=== PATIENT | male | born 1935 | race Caucasian/White ===

== ENCOUNTER 2016-03-15 14:36 | Observation (INO) | payer MEDICARE ==
[2016-03-15] MEDS ORDERED: Lactated Ringers 1,000 ML IV ONE (15:51)
[2016-03-15] MEDS ORDERED: Zofran 4 MG/2 ML VIAL IV PRN (15:51)
[2016-03-15] MEDS ORDERED: Lactated Ringers 1,000 ML IV SCH (16:00)
--- NOTE | 2016-03-15 16:36 | XRAY ---
Indication: Altered mental status. Comparison: None Portable chest demonstrates mild bibasilar infiltrates versus atelectasis without consolidation or large effusion. Heart is not enlarged. Bony thorax intact with mild degenerative changes. Impression: Bibasilar infiltrates/atelectasis. Correlate clinically.
[2016-03-15 16:41] LABS: Mean Cell Volume 91.8 fl (78-100); Mean Corpuscular Hemoglobin 29.7 pg (26-32); Platelet Count 56 K/mm3 (150-450); Red Blood Count 5.25 M/mm3 (4.1-5.6); Red Cell Distribution Width 20.4 % (11.5-14.0)
[2016-03-15] MEDS ORDERED: Zithromax 500 MG/ 250 ML NaCl Premix 250 ML IV SCH (17:07)
[2016-03-15] MEDS ORDERED: ROCEPHIN 1 Gm-D5w 50 ml Bag** 50 ML IV SCH (17:15)
[2016-03-15 17:19] LABS: BAND 1 % (0.0-2.0); Eosinophil 2 % (0.00-3.0); Total Cells Counted 100
[2016-03-15 17:21] LABS: ANISOCYTOSIS 1+; Platelet Estimate DECREASED (NORMAL); Polychromasia 1+
[2016-03-15 17:45] LABS: ALBUMIN 3.2 g/dL (3.4-5.0); ANION GAP 32.2 MEQ/L (5-15); BILIRUBIN,TOTAL 1.6 mg/dL (0.2-1.0); Total Protein 6.7 gm/dL (6.4-8.2)
[2016-03-15 17:49] VITALS: O2SAT 93
[2016-03-15 17:50] LABS: Potassium 7.6 mEq/L (3.5-5.1)
[2016-03-15 17:51] LABS: Carbon Dioxide 11.8 mEq/L (21-32)
[2016-03-15] MEDS ORDERED: Sodium Chloride 0.9% 1000 ML 1,000 ML IV STA (18:05)
[2016-03-15] MEDS ORDERED: NovoLIN R IV ONE (18:07)
[2016-03-15] MEDS ORDERED: D50W 50ML Vial IV ONE (18:08)
[2016-03-15] MEDS ORDERED: NovoLOG Insulin SQ PRN (18:08)
[2016-03-15] MEDS ORDERED: Kayexylate 15 GM/60 ML PO ONE (18:11)
[2016-03-15] MEDS ORDERED: Sodium Chloride 0.9% 1000 ML 1,000 ML IV SCH (18:15)
--- NOTE | 2016-03-15 18:24 | PCM.HP ---
History of Present Illness - Chief Complaint Chief Complaint: altered mental status Date: 03/15/16 History of Present Illness: is a 80 year old male. History is provided by the . who has been having increased weakness not eating or drinking much for the last 4 days and decreased urine output and not really any urine output starting yesterday. He was more confused yesterday and worse today. His brought him into his regular [facility] [employer] [facility] who had me look at him in clinic and we sent him to the tele floor for observation labs and hydration. He remains confused now and weak but otherwise denies complaints. He had TURP done in 08/[address] Plaza and has been self cathing since then. He has been getting some blood out and thick urine yesterday. - Review of Systems Constitutional: Fatigue, Lethargy, Malaise, No Fever, No Chills Eyes: No Symptoms Ears, Nose, & Throat: No Symptoms Respiratory: No Cough, No Short Of Breath Cardiac: No Chest Pain, No Edema, No Syncope Abdominal/Gastrointestinal: Nausea, No Abdominal Pain Genitourinary Symptoms: Hematuria Skin: No Rash Neurological: Focal Weakness, Gait Changes Psychological: No Symptoms Endocrine: No Symptoms Hematologic/Lymphatic: No Symptoms Immunological/Allergic: No Symptoms Medications & Allergies Home Medications: Home Medication List Acyclovir [Zovirax] 400 mg PO BID 07/18/15 [History Confirmed 03/15/16] Aspirin [Aspirin EC] 81 mg PO DAILY 07/18/15 [History Confirmed 03/15/16] Atenolol [Tenormin] 100 mg PO DAILY 07/18/15 [History Confirmed 03/15/16] Gabapentin [Neurontin] 300 mg PO TID 07/18/15 [History Confirmed 03/15/16] Glyburide 2.5 mg PO BID 07/18/15 [History Confirmed 03/15/16] Lisinopril 5 mg [Zestril 5 MG] 5 mg PO DAILY 07/18/15 [History Confirmed 03/15/16] Metformin HCl 1000 mg [Glucophage 1000 MG] 1,000 mg PO BID 07/18/15 [History Confirmed 03/15/16] Prednisolone Acetate OPHTH [Pred-Forte 1% Ophthalmic] 1 drop OP DAILY 06/ 10/16 [History Confirmed 03/15/16] Simvastatin 40 mg [Zocor 40 mg] 20 mg PO DAILY 07/18/15 [History Confirmed 03/15] Allergies/Adverse Reactions: Allergies Allergy/AdvReac Type Severity Reaction Status Date / Time celecoxib [From Celebrex] AdvReac Verified 03/15/16 15:12 - Past Medical History Past Medical History: Yes Neurological History: No Pertinent History ENT History: Other Cardiac History: High Cholesterol, Hypertension Respiratory History: No Pertinent History Endocrine Medical History: Diabetes Type II Musculoskelatal History: Arthritis GI Medical History: Hernia History: Other Pyscho-Social History: No Pertinent History Male Reproductive Disorders: Prostate Problems Comment: herpies infection of the right eye. pt self caths following prostate surgery 2016 - Past Surgical History Past Surgical History: Yes Neuro Surgical History: No Pertinent History Cardiac History: No Pertinent History Respiratory Surgery: No Pertinent History GI Surgical History: Hernia Repair Genitourinary Surgical Hx: No Pertinent History Musculskeletal Surgical Hx: No Pertinent History Male Surgical History: Prostate Surgery Other Surgical History: hernia repair times 3 - Social History Smoking Status: Former smoker How long have you smoked: 50 years Exposure to second hand smoke: No Alcohol: None Drug Use: none - Physical Exam Vital Signs: Vital Signs - 24 hr Temp Pulse Resp BP Pulse Ox 03/15/16 17:48 96.9 F 63 20 129/89 93 L 03/15/16 16:57 97 03/15/16 15:25 96.4 F 62 28 H 124/54 91 L Oxygen-Last 24 hours O2 Percentage 2 Liters = 28% General Appearance: lethargy Neurologic Exam: other (drowsy answers simple questions), No oriented x 3 Eye Exam: pale conjunctivae, No scleral icterus Ears, Nose, Throat Exam: dry mucous membranes Neck Exam: non-tender, supple Respiratory Exam: normal breath sounds, lungs clear Cardiovascular Exam: regular rate/rhythm, other (cool hands and feet), No edema Gastrointestinal/Abdomen Exam: soft, normal bowel sounds, No tenderness, No distention Extremity Exam: normal inspection, No calf tenderness, No pedal edema Skin Exam: warm, dry, No jaundice Results - Labs Lab/Micro Results: Lab Results-Last 24 Hours 03/15/16 03/15/16 Range/Units 16:20 16:20 WBC 16.0 H (4.0-10.5) K/mm3 RBC 5.25 (4.1-5.6) M/mm3 Hgb 15.6 (12.5-18.0) gm/dl Hct 48.2 (42-50) % MCV 91.8 (78-100) fl MCH 29.7 (26-32) pg MCHC 32.4 (32-36) g/dl RDW 20.4 H (11.5-14.0) % Plt Count 56 L (150-450) K/mm3 Segmented Neutrophils 68 H (36.-66.) % Band Neutrophils 1 (0.0-2.0) % Lymphocytes (Manual) 26 (24-44) % Monocytes (Manual) 3 (0.0-12.0) % Eosinophils (Manual) 2 (0.00-3.0) % Differential Comment ABNORMAL Platelet Estimate DECREASED (NORMAL) Polychromasia 1+ Anisocytosis 1+ Sodium 137 (136-145) mEq/L Potassium 7.6 H* (3.5-5.1) mEq/L Chloride 101 (98-107) mEq/L Carbon Dioxide 11.8 L* (21-32) mEq/L Anion Gap 32.2 H (5-15) MEQ/L BUN 84 H (9-20) mg/dL Creatinine 5.00 H (0.55-1.30) mg/dl Estimated GFR 12 ML/MIN Glucose 189 H (70-110) MG/DL Calcium 8.9 (8.5-10.1) mg/dL Total Bilirubin 1.6 H (0.2-1.0) mg/dL AST 497 H (15-37) U/L ALT 1527 H (12-78) U/L Alkaline Phosphatase 168 H (46-116) U/L Serum Total Protein 6.7 (6.4-8.2) gm/dL Albumin 3.2 L (3.4-5.0) g/dL - Radiology Impressions Radiology Exams & Impressions: Radiology Procedures Category Date Time Status CHEST 1 VIEW (PORTABLE) Stat Exams 03/15/16 15:51 Completed - Other Procedures and Tests Respiratory Therapy 03/15/16 16:53 Oxygen NASAL CANNULA 2 lpm Assessment/Plan (1) Acute hyperkalemia Current Visit: Yes Status: Acute Assessment & Plan: with suspected infection secondary to UTI vs pneumonia he is currently getting the Rocephin. He had 1 L LR bolus on arrival the fluids were changed to NS for the second liter bolus after the labs returned and getting the 2nd liter running now He is being given 10 Units IV regular insulin and 60 G Kayexate. He has not had events on telemetry / ekg but has peaked T waves. There was only 1 ml of mucous returned on the straight cath. On return of the lab results Dr. Bliss was consulted at 18:15 and kindly accepted transfer to [facility] for continued care and the availability of dialysis if needed as well as urology availability should there be an obstruction causing this acute failure. with his acute severe symptomatic hyperkalemia and anuria. The diagnosis, treatment, reason for transfer and risks were discussed in detail with the patient's , sister, and children at bedside who were in agreement with plan of care. Code(s): E87.5 - HYPERKALEMIA (2) Acute renal failure Current Visit: Yes Status: Acute (3) Anuria Current Visit: Yes Status: Acute Code(s): R34 - ANURIA AND OLIGURIA (4) Elevated liver enzymes Current Visit: Yes Status: Acute Code(s): R74.8 - ABNORMAL LEVELS OF OTHER SERUM ENZYMES (5) Thrombocytopenia Current Visit: Yes Status: Acute (6) Altered mental status Current Visit: Yes Status: Acute Code(s): R41.82 - ALTERED MENTAL STATUS, UNSPECIFIED (7) Type 2 diabetes mellitus Current Visit: Yes Status: Acute (8) Hypertension Current Visit: Yes Status: Acute Code(s): I10 - ESSENTIAL (PRIMARY) HYPERTENSION (9) BPH (benign prostatic hyperplasia) Current Visit: Yes Status: Acute Code(s): N40.0 - BENIGN PROSTATIC HYPERPLASIA WITHOUT LOWER URINRY TRACT SYMP
[2016-03-15] MEDS ORDERED: D50W 50 ml Abboject IV ONE (18:28)
[2016-03-15] MEDS ORDERED: SODIUM CHLORIDE 0.9% IV ONE (19:13)
[2016-03-15] MEDS ORDERED: CALCIUM GLUCONATE IV ONE (19:13)
[2016-03-15] MEDS ORDERED: Sodium Chloride 0.9% 100 ML IVPB 100 ML IV ONE (19:19)
[2016-03-15] MEDS ORDERED: Calcium Gluconate 10% 1000 MG IV ONE (19:19)
[2016-03-15 19:32] VITALS: BP 195/98; PULSE 93
== END 2016-03-15 20:15 | disposition home or self-care (01) ==
LOC: MED SURG 14:56
PROVIDERS: ADMIT Family Medicine; ATTEND Family Medicine
DX: E87.5 Hyperkalemia (principal); N17.9 Acute kidney failure, unspecified; R34 Anuria and oliguria; R74.8 Abnormal levels of other serum enzymes; R41.82 Altered mental status, unspecified; D69.6 Thrombocytopenia, unspecified; I10 Essential (primary) hypertension; N40.0 Benign prostatic hyperplasia without lower urinary tract symptoms; E11.9 Type 2 diabetes mellitus without complications; Z79.4 Long term (current) use of insulin; Z79.899 Other long term (current) drug therapy; M19.90 Unspecified osteoarthritis, unspecified site
CPT/HCPCS: 36415; 71010; 80053; 85025; 87040; 93005; 93268; 94760; G0378; J0456; J0610; J0696; J2405

== ENCOUNTER 2017-04-26 19:13 | Inpatient (IN) | payer MEDICARE ==
--- NOTE | 2017-04-26 19:28 | ERPHSYRPT ---
- History of Present Illness Time Seen by Provider: 04/26/17 19:21 Source: patient Physician History: This is a 81-year-old white male he arrives with complaint of a fever chills at home. Patient himself actually states she is not quite sure why he is here he states his family thought he was having a fever and having chills at home he denies vomiting he denies a cough He does have a history of diabetes Patient apparently has been treated for sepsis in the past Past medical history includes hyperlipidemia, diabetes, arthritis, hernia, prostate problems Past surgical history includes prostate surgery, hernia repair Timing/Duration: other (symptoms for several days) Severity: moderate Modifying Factors: Improves With: nothing Associated Symptoms: chills, fever, No nausea, No vomiting, No abdominal pain, No shortness of breath, No heartburn, No diaphoresis, No cough, No chest pain, No headaches, No loss of appetite, No malaise, No rash, No syncope, No seizure, No weakness Allergies/Adverse Reactions: celecoxib [From Celebrex] Adverse Reaction (Verified 04/26/17 21:57) kidney failure Home Medications: Aspirin [Aspirin EC] 81 mg PO DAILY 07/18/15 [History] Lisinopril 5 mg [Zestril 5 MG] 2.5 mg PO DAILY 07/18/15 [History] Metformin HCl 1000 mg [Glucophage 1000 MG] 500 mg PO BID 07/18/15 [History] Prednisolone Acetate OPHTH [Pred-Forte 1% Ophthalmic] 1 drop OP DAILY 11/22 [History] Acyclovir 800 mg [Zovirax 800 mg] 800 mg PO BID 04/26/17 [History] Carvedilol 12.5 mg [Coreg 12.5 mg] 12.5 mg PO BID 04/26/17 [History] Ergocalciferol (Vitamin D2) [Vitamin D2] 50,000 unit PO UD 04/26/17 [History] Glipizide 2.5 mg [Glucotrol Xl 2.5 MG] 2.5 mg PO HS 04/26/17 [History] Glipizide 5 mg [Glucotrol 5 MG] 5 mg PO DAILY 04/26/17 [History] Lactulose [Lactulose 20 gm/30Ml Ud Cup] 5 gm PO DAILY 04/26/17 [History] - Review of Systems Constitutional: Fever, Chills, No Fatigue, No Lethargy, No Malaise, No Night Sweats, No Weakness, No Weight Loss Eyes: No Symptoms Ears, Nose, & Throat: No Symptoms Respiratory: No Cough, No Dyspnea Cardiac: No Chest Pain, No Edema, No Syncope Abdominal/Gastrointestinal: No Abdominal Pain, No Nausea, No Vomiting, No Diarrhea Genitourinary Symptoms: No Dysuria Musculoskeletal: No Back Pain, No Neck Pain Skin: No Rash Neurological: No Dizziness, No Focal Weakness, No Sensory Changes Psychological: No Symptoms Endocrine: No Symptoms All Other Systems: Reviewed and Negative - Past Medical History Pertinent Past Medical History: Yes Neurological History: No Pertinent History ENT History: Other Cardiac History: High Cholesterol, Hypertension Respiratory History: No Pertinent History Endocrine Medical History: Diabetes Type II Musculoskeletal History: Arthritis GI Medical History: Hernia History: Other Psycho-Social History: No Pertinent History Male Reproductive Disorders: Prostate Problems Other Medical History: herpies infection of the right eye. pt self caths following prostate surgery 2016 - Past Surgical History Past Surgical History: Yes Neuro Surgical History: No Pertinent History Cardiac: No Pertinent History Respiratory: No Pertinent History Gastrointestinal: Hernia Repair Genitourinary: No Pertinent History Musculoskeletal: No Pertinent History Male Surgical History: Prostate Surgery Other Surgical History: hernia repair times 3 - Social History Smoking Status: Former smoker How long have you smoked: 50 years Exposure to second hand smoke: No Drug Use: none - Nursing Vital Signs Nursing Vital Signs: Initial Vital Signs Temperature 98.7 F 04/26/17 19:19 Pulse Rate 144 H 04/26/17 19:19 Respiratory Rate 21 04/26/17 19:19 Blood Pressure 191/103 04/26/17 19:19 O2 Sat by Pulse Oximetry 94 L 04/26/17 19:19 Pain Scale Pain Intensity 0 - Physical Exam General Appearance: no apparent distress, alert, other (well-developed well- nourished white male in no acute distress) Eye Exam: PERRL/EOMI, eyes nml inspection Ears, Nose, Throat Exam: normal ENT inspection, TMs normal, pharynx normal, moist mucous membranes Neck Exam: normal inspection, non-tender, supple, full range of motion Respiratory Exam: normal breath sounds, lungs clear, No respiratory distress Cardiovascular Exam: tachycardia, other (heart tachycardic without murmur) Gastrointestinal/Abdomen Exam: soft, normal bowel sounds, No tenderness, No mass Back Exam: normal inspection, normal range of motion, No CVA tenderness, No vertebral tenderness Extremity Exam: normal inspection, normal range of motion, pelvis stable Neurologic Exam: alert, oriented x 3, cooperative, normal mood/affect, nml cerebellar function, nml station & gait, sensation nml, No motor deficits Skin Exam: normal color (this), warm, dry, No rash Lymphatic Exam: No adenopathy SpO2 Interpretation: borderline oxygenation (93% on 3 liters) - Course Nursing assessment & vital signs reviewed: Yes EKG Interpreted by Me: RATE (145), Sinus Tach, NORMAL AXIS, Other (EKG: Sinus tachycardia 145 bpm normal axis, no acute ST or T wave changes) - Radiology Exams Chest X-ray Interpretation: Interpreted by me, Other (no acute disease process) Ordered Tests: Active Orders 24 hr Category Date Time Status Accucheck STAT Care 04/26/17 19:23 Active Intern Retail STAT Care 04/26/17 19:18 Active IV Insertion STAT Care 04/26/17 19:18 Active Pulse Oximetry (ED) STAT Care 04/26/17 19:18 Active CHEST 1 VIEW (PORTABLE) Stat Exams 04/26/17 19:18 Taken BLOOD CULTURE Stat Lab 04/26/17 19:55 Received CBC W DIFF Stat Lab 04/26/17 19:40 Completed CMP Stat Lab 04/26/17 19:40 Completed CULTURE,URINE Stat Lab 04/26/17 19:45 Received Lactic Acid Stat Lab 04/26/17 19:30 Completed Manual Differential NC Stat Lab 04/26/17 19:40 Completed PROTIME WITH INR Stat Lab 04/26/17 19:40 Completed PTT Stat Lab 04/26/17 19:40 Completed UA W/ MICROSCOPIC Stat Lab 04/26/17 19:45 Completed VENOUS BLOOD GAS Urgent Lab 04/26/17 19:30 Completed Medication Summary Generic Name Dose Route Start Last Admin Trade Name Freq PRN Reason Stop Dose Admin Sodium Chloride 1,000 mls @ 999 mls/hr 04/26/17 19:30 04/26/17 20:56 Sodium Chloride 0.9% 1000 Ml IV 04/26/17 22:30 999 mls/hr .Q1H1M ROBBY Administration Discontinued Medications Generic Name Dose Route Start Last Admin Trade Name Yuliet PRN Reason Stop Dose Admin Ceftriaxone Sodium/Dextrose 1 g in 50 mls @ 100 mls/hr 04/26/17 20:50 20:56 Rocephin 1 Gm-D5w 50 Ml Bag IV 04/26/17 21:19 100 mls/hr STAT STA Administration Ceftriaxone Sodium/Dextrose Confirm 04/26/17 20:54 Rocephin 1 Gm-D5w 50 Ml Bag Administered 04/26/17 20:55 Dose 1 g in 50 mls @ ud IV .STK-MED ONE Lab/Rad Data: Laboratory Result Diagrams 04/26/17 19:40 04/26/17 19:40 Laboratory Results 04/26/17 04/26/17 04/26/17 Range/Units 19:45 19:40 19:40 WBC (4.0-10.5) K/mm3 RBC (4.1-5.6) M/mm3 Hgb (12.5-18.0) gm/dl Hct (42-50) % MCV (78-100) fl MCH (26-32) pg MCHC (32-36) g/dl RDW (11.5-14.0) % Plt Count (150-450) K/mm3 MPV (6-9.5) fl Segmented Neutrophils (36.-66.) % Band Neutrophils (0.0-2.0) % Lymphocytes (Manual) (24-44) % Monocytes (Manual) (0.0-12.0) % Differential Comment Platelet Estimate (NORMAL) INR 1.10 (0.8-3.0) APTT 36.2 H (24.1-36.1) SECONDS VBG pH (7.32-7.42) VBG pCO2 at Pat Temp (42-55) mm/Hg VBG pO2 at Pat Temp (25-40) mm/Hg VBG HCO3 (22-28) meq/L VBG O2 Sat (Roger) (95-100) VBG Base Excess (-2.0-2.0) VBG Hemoglobin VBG Carboxyhemoglobin (0.0-6.9) % T HGB POC Potassium (3.5-5.1) Sodium 138 (137-145) mmol/L Potassium 4.4 (3.5-5.1) mmol/L Chloride 101 (98-107) mmol/L Carbon Dioxide 24 (22-30) mmol/L Anion Gap 17.3 H (5-15) MEQ/L BUN 24 H (9-20) mg/dL Creatinine 1.11 (0.66-1.25) mg/dL Estimated GFR > 60 ML/MIN Glucose 228 H (74-106) mg/dL Lactic Acid (0.4-2.0) Calcium 9.8 (8.4-10.2) mg/dL Total Bilirubin 0.70 (0.2-1.3) mg/dL AST 11 L (17-59) U/L ALT 15 (0-50) U/L Alkaline Phosphatase 85 (38-126) U/L Serum Total Protein 7.4 (6.3-8.2) g/dL Albumin 4.2 (3.5-5.0) g/dL Ur Collection Type CCMS Urine Color YELLOW (YELLOW) Urine Appearance SLIGHTLY CLOUDY (CLEAR) Urine pH 7.0 (5-6) Ur Specific Grundy 1.010 (1.005-1.025) Urine Protein 30 (Negative) Urine Ketones NEGATIVE (NEGATIVE) Urine Blood 50 (0-5) Baldo/ul Urine Nitrite POSITIVE (NEGATIVE) Urine Bilirubin NEGATIVE (NEGATIVE) Urine Urobilinogen NORMAL (0-1) mg/dL Ur Leukocyte Esterase 1+ (NEGATIVE) Urine Microscopic RBC 2-5 (0-2) /HPF Urine Microscopic WBC 50-100 (0-5) /HPF Urine Bacteria MANY (NEGATIVE) /HPF Urine Glucose 100 (NEGATIVE) mg/dL Specimen Received [id number]/26/17 04/26/17 04/26/17 Range/Units 19:40 19:30 19:30 WBC 22.6 H (4.0-10.5) K/mm3 RBC 4.64 (4.1-5.6) M/mm3 Hgb 14.3 (12.5-18.0) gm/dl Hct 42.1 (42-50) % MCV 90.7 (78-100) fl MCH 30.8 (26-32) pg MCHC 34.0 (32-36) g/dl RDW 17.4 H (11.5-14.0) % Plt Count 242 (150-450) K/mm3 MPV 10.3 H (6-9.5) fl Segmented Neutrophils 88 H (36.-66.) % Band Neutrophils 3 H (0.0-2.0) % Lymphocytes (Manual) 5 L (24-44) % Monocytes (Manual) 4 (0.0-12.0) % Differential Comment NORMAL Platelet Estimate NORMAL (NORMAL) INR (0.8-3.0) APTT (24.1-36.1) SECONDS VBG pH 7.44 H (7.32-7.42) VBG pCO2 at Pat Temp 37 L (42-55) mm/Hg VBG pO2 at Pat Temp 25 (25-40) mm/Hg VBG HCO3 25.1 (22-28) meq/L VBG O2 Sat (Roger) 56.1 L (95-100) VBG Base Excess 1.1 (-2.0-2.0) VBG Hemoglobin 14.5 VBG Carboxyhemoglobin 1.8 (0.0-6.9) % T HGB POC Potassium 4.4 (3.5-5.1) Sodium (137-145) mmol/L Potassium (3.5-5.1) mmol/L Chloride (98-107) mmol/L Carbon Dioxide (22-30) mmol/L Anion Gap (5-15) MEQ/L BUN (9-20) mg/dL Creatinine (0.66-1.25) mg/dL Estimated GFR ML/MIN Glucose (74-106) mg/dL Lactic Acid 1.4 (0.4-2.0) Calcium (8.4-10.2) mg/dL Total Bilirubin (0.2-1.3) mg/dL AST (17-59) U/L ALT (0-50) U/L Alkaline Phosphatase (38-126) U/L Serum Total Protein (6.3-8.2) g/dL Albumin (3.5-5.0) g/dL Ur Collection Type Urine Color (YELLOW) Urine Appearance (CLEAR) Urine pH (5-6) Ur Specific Grundy (1.005-1.025) Urine Protein (Negative) Urine Ketones (NEGATIVE) Urine Blood (0-5) Baldo/ul Urine Nitrite (NEGATIVE) Urine Bilirubin (NEGATIVE) Urine Urobilinogen (0-1) mg/dL Ur Leukocyte Esterase (NEGATIVE) Urine Microscopic RBC (0-2) /HPF Urine Microscopic WBC (0-5) /HPF Urine Bacteria (NEGATIVE) /HPF Urine Glucose (NEGATIVE) mg/dL Specimen Received - Progress Progress: improved Progress Note: 04/26/17 19:27 81-year-old white male brought by medics with complaint of fever chills at home patient really does not have any of complaints himself but was noted by his family to have fever and chills. Patient is tachycardic on arrival. Patient with good perfusion to all extremities oxygenation 93% on 3 L good capillary refill to all extremities. 04/26/17 19:46 Patient's lactic acid is 1.4, patient is afebrile, he does not appear to be in acute distress he has good perfusion to all extremities blood pressure is 191/ 103 however he is having a urinary catheterization at this time for urine. Patient does not appear to be septic at this time. Sats were 93% on 3 L Patient is receiving IV fluids secondary to tacchycardia. 04/26/17 20:54 patient was positive urinary tract infection has received approximately 2 L normasaline, rocephin is ordered, heart rate to approximately 125 blood pressure 176/89, Will contact Dr. Hickey who is button riveter for Dr. Hester consider placement on observation. 04/26/17 21:32 Patient doing well in no acute distress awaiting callback from Dr. Hickey. 04/26/17 22:[address] Hickey Will admit patient with diagnosis of UTI, rule out sepsis. Patient will be continued with IV fluids telemetry Rocephin. - Departure Time of Disposition: 22:39 Departure Disposition: In-patient Admission Clinical Impression: rule out sepsis UTI (urinary tract infection) Qualifiers: Urinary tract infection type: site unspecified Hematuria presence: without hematuria Qualified Code(s): N39.0 - Urinary tract infection, site not specified Condition: Fair Critical Care Time: No Referrals: ARLENE BALDWIN [Primary Care Provider] -
[2017-04-26] MEDS ORDERED: Sodium Chloride 0.9% 1000 ML 1,000 ML ONE ×3 (19:35→20:54)
[2017-04-26 19:38] LABS: VBG BASE EXCESS 1.1 (-2.0-2.0); VBG CARBOXYHEMOGLOBIN 1.8 % T HGB (0.0-6.9); VBG HCO3- 25.1 meq/L (22-28); VBG HEMOGLOBIN 14.5; VBG O2 SATURATION 56.1 (95-100); VBG POTASSIUM 4.4 (3.5-5.1); VBG pH 7.44 (7.32-7.42)
[2017-04-26] MEDS: Sodium Chloride 0.9% 1000 ML 1,000 ML IV SCH ×3 (19:47→20:56)
[2017-04-26 20:03] LABS: Granulocyte Absolute (ANC) 20.32 (1.4-6.9); Hematocrit 42.1 % (42-50); Hemoglobin 14.3 gm/dl (12.5-18.0); Mean Cell Volume 90.7 fl (78-100); Mean Corpuscular Hemoglobin 30.8 pg (26-32); Mean Platelet Volume 10.3 fl (6-9.5); Platelet Count 242 K/mm3 (150-450); Red Blood Count 4.64 M/mm3 (4.1-5.6); Red Cell Distribution Width 17.4 % (11.5-14.0); White Blood Count 22.6 K/mm3 (4.0-10.5)
[2017-04-26 20:21] LABS: INR 1.1 (0.8-3.0)
[2017-04-26 20:24] LABS: PTT 36.2 SECONDS (24.1-36.1)
[2017-04-26 20:26] LABS: ALBUMIN 4.2 g/dL (3.5-5.0); ALKALINE PHOSPHATASE 85 U/L (38-126); ANION GAP 17.3 MEQ/L (5-15); BLOOD UREA NITROGEN 24 mg/dL (9-20); CHLORIDE 101 mmol/L (98-107); Calcium 9.8 mg/dL (8.4-10.2); Carbon Dioxide 24 mmol/L (22-30); Creatinine 1 1.11 mg/dL (0.66-1.25); Glucose 228 mg/dL (74-106); Potassium 4.4 mmol/L (3.5-5.1); SGOT/AST 11 U/L (17-59); SGPT/ALT 15 U/L (0-50); SODIUM 138 mmol/L (137-145); Total Protein 7.4 g/dL (6.3-8.2)
[2017-04-26 20:36] LABS: Appearance SLIGHTLY CLOUDY (CLEAR); Bilirubin NEGATIVE (NEGATIVE); Blood 50 Ery/ul (0-5); Glucose 100 mg/dL (NEGATIVE); Ketones NEGATIVE (NEGATIVE); Leukocyte Esterase 1+ (NEGATIVE); Nitrite POSITIVE (NEGATIVE); Protein,Urine Dip 30 (Negative); Urobilinogen NORMAL mg/dL (0-1)
[2017-04-26 20:37] LABS: WBC 50-100 /HPF (0-5)
[2017-04-26 20:38] LABS: Bacteria MANY /HPF (NEGATIVE)
[2017-04-26] MEDS ORDERED: ROCEPHIN 1 Gm-D5w 50 ml Bag** 1 G/50 ML IVPB IV STA (20:50)
[2017-04-26] MEDS ORDERED: ROCEPHIN 1 Gm-D5w 50 ml Bag** 1 G/50 ML IVPB IV ONE (20:54)
[2017-04-26 22:07] LABS: Neutrophils 88 % (36.-66.); Total Cells Counted 100
[2017-04-26 22:08] LABS: BAND 3 % (0.0-2.0); Lymphocytes 5 % (24-44); Monocyte 4 % (0.0-12.0); Platelet Estimate NORMAL (NORMAL)
[2017-04-27] MEDS ORDERED: COREG 12.5 MG PO ONE (01:06)
[2017-04-27] MEDS: Sodium Chloride 0.9% 1000 ML 1,000 ML IV SCH ×2 (04:12→12:19)
[2017-04-27] MEDS ORDERED: NovoLOG Insulin SQ PRN (06:00)
[2017-04-27 06:49] LABS: BASOPHIL % 0.4 % (0.0-0.4); Basophil (Absolute #) 0.06 (0-0.4); Eosinophil % 0.6 % (0.00-5.0); Granulocytes % 80.4 % (36.0-66.0); Hematocrit 35.6 % (42-50); Hemoglobin 11.7 gm/dl (12.5-18.0); Lymphocyte (Absolute #) 1.83 (1.0-4.6); Lymphocytes % 11.2 % (24.0-44.0); Mean Corpuscular Hemoglobin 30.2 pg (26-32); Mean Corpuscular Hgb Concent. 32.9 g/dl (32-36); Mean Platelet Volume 10.4 fl (6-9.5); Monocyte (Absolute #) 1.22 (0.0-1.3); Monocytes % 7.4 % (0.0-12.0); Platelet Count 208 K/mm3 (150-450); Red Blood Count 3.87 M/mm3 (4.1-5.6); Red Cell Distribution Width 17.6 % (11.5-14.0); White Blood Count 16.4 K/mm3 (4.0-10.5)
[2017-04-27 07:04] LABS: ALBUMIN 3.2 g/dL (3.5-5.0); ALKALINE PHOSPHATASE 62 U/L (38-126); ANION GAP 13.1 MEQ/L (5-15); BLOOD UREA NITROGEN 17 mg/dL (9-20); CHLORIDE 107 mmol/L (98-107); Calcium 8.8 mg/dL (8.4-10.2); Carbon Dioxide 23 mmol/L (22-30); Creatinine 1 0.99 mg/dL (0.66-1.25); Glucose 191 mg/dL (74-106); SGOT/AST 7 U/L (17-59); SGPT/ALT 10 U/L (0-50); SODIUM 139 mmol/L (137-145); Total Protein 5.9 g/dL (6.3-8.2)
[2017-04-27] MEDS ORDERED: NORCO 5/325 MG PO PRN (08:05)
--- NOTE | 2017-04-27 08:07 | PCM.HP ---
History of Present Illness - Chief Complaint Chief Complaint: UTI Sepsis Date: 04/27/17 History of Present Illness: is a 81 year old male. who was chilling and weak in his legs states he just was treated for a uti and just finished cipro he thinks he was otherwise just weak and not feelign well so his called EMS who brought him to ed. He is feeling a little better this am. says he has no pain now eating well - Review of Systems Constitutional: Fever, Chills, Fatigue Eyes: No Symptoms Ears, Nose, & Throat: No Symptoms Respiratory: No Cough, No Short Of Breath Cardiac: No Chest Pain, No Edema, No Syncope Abdominal/Gastrointestinal: No Abdominal Pain, No Nausea, No Vomiting, No Diarrhea Genitourinary Symptoms: Urinary Retention, No Dysuria Musculoskeletal: Joint Pain (shoulders), No Back Pain, No Neck Pain Skin: No Rash Neurological: No Dizziness, No Focal Weakness, No Sensory Changes Psychological: No Symptoms Endocrine: No Symptoms Hematologic/Lymphatic: No Symptoms Immunological/Allergic: No Symptoms Medications & Allergies Home Medications: Home Medication List Aspirin [Aspirin EC] 81 mg PO DAILY 07/18/15 [History Confirmed 04/26/17] Lisinopril 5 mg [Zestril 5 MG] 2.5 mg PO DAILY 07/18/15 [History Confirmed 04/26/17] Metformin HCl 1000 mg [Glucophage 1000 MG] 500 mg PO BID 07/18/15 [History Confirmed 04/26/17] Prednisolone Acetate OPHTH [Pred-Forte 1% Ophthalmic] 1 drop OP DAILY 11/22 [History Confirmed 04/26/17] Acyclovir 800 mg [Zovirax 800 mg] 800 mg PO BID 04/26/17 [History Confirmed 04/26/17] Carvedilol 12.5 mg [Coreg 12.5 mg] 12.5 mg PO BID 04/26/17 [History Confirmed 04/26/17] Ergocalciferol (Vitamin D2) [Vitamin D2] 50,000 unit PO UD 04/26/17 [History Confirmed 04/26/17] Glipizide 2.5 mg [Glucotrol Xl 2.5 MG] 2.5 mg PO HS 04/26/17 [History Confirmed 04/26/17] Glipizide 5 mg [Glucotrol 5 MG] 5 mg PO DAILY 04/26/17 [History Confirmed 04/26/17] Lactulose [Lactulose 20 gm/30Ml Ud Cup] 5 gm PO DAILY 04/26/17 [History Confirmed 04/26/17] Ciprofloxacin HCl 500 mg PO BID 04/27/17 [History Confirmed 04/27/17] Hydrocodone/Acetaminophen [Hydrocodone-Acetamin 5-325 mg] 5 - 325 mg PO BID [History Confirmed 04/27/17] Allergies/Adverse Reactions: Allergies Allergy/AdvReac Type Severity Reaction Status Date / Time celecoxib [From Celebrex] AdvReac Verified 04/26/17 21:57 - Past Medical History Past Medical History: Yes Neurological History: No Pertinent History ENT History: Other Cardiac History: High Cholesterol, Hypertension Respiratory History: No Pertinent History Endocrine Medical History: Diabetes Type II Musculoskelatal History: Arthritis GI Medical History: Hernia History: Renal Disease, Other Pyscho-Social History: No Pertinent History Male Reproductive Disorders: Prostate Problems Comment: recent herpes infection of the right eye /pt self caths following prostate surgery 2016 - Past Surgical History Past Surgical History: Yes Neuro Surgical History: No Pertinent History Cardiac History: No Pertinent History Respiratory Surgery: No Pertinent History GI Surgical History: Hernia Repair Genitourinary Surgical Hx: Other Musculskeletal Surgical Hx: No Pertinent History Male Surgical History: Prostate Surgery Other Surgical History: hernia repair times 3/prostate sx. august 2015 - Social History Smoking Status: Former smoker How long have you smoked: 20 years Exposure to second hand smoke: No Alcohol: None Drug Use: none - Physical Exam Vital Signs: Vital Signs - 24 hr Temp Pulse Resp BP Pulse Ox 04/27/17 07:37 98.7 F 85 18 156/69 96 04/27/17 04:00 98.4 F 85 16 139/112 94 L 04/26/17 23:41 98.0 F 112 H 16 158/72 96 04/26/17 22:30 115 H 18 158/82 95 04/26/17 21:40 118 H 16 154/84 95 04/26/17 20:16 100.1 F 130 H 16 176/89 96 04/26/17 19:32 94 L 04/26/17 19:19 98.7 F 144 H 21 191/103 94 L Oxygen-Last 24 hours O2 Percentage 3 Liters = 32% O2 Percentage 3 Liters = 32% O2 Percentage 3 Liters = 32% O2 Percentage 3 Liters = 32% O2 Percentage 3 Liters = 32% O2 Percentage 3 Liters = 32% O2 Percentage 3 Liters = 32% General Appearance: no apparent distress, alert Neurologic Exam: alert, oriented x 3, cooperative, normal mood/affect, nml cerebellar function, nml station & gait, sensation nml, No motor deficits Eye Exam: PERRL/EOMI, eyes nml inspection Ears, Nose, Throat Exam: normal ENT inspection, TMs normal, pharynx normal, moist mucous membranes Neck Exam: normal inspection, non-tender, supple, full range of motion Respiratory Exam: normal breath sounds, lungs clear, No respiratory distress Cardiovascular Exam: regular rate/rhythm, normal heart sounds, normal peripheral pulses Gastrointestinal/Abdomen Exam: soft, normal bowel sounds, No tenderness, No mass Back Exam: normal inspection, normal range of motion, No CVA tenderness, No vertebral tenderness Extremity Exam: normal inspection, normal range of motion, pelvis stable Skin Exam: normal color, warm, dry, No rash Lymphatic Exam: No adenopathy Results - Labs Lab/Micro Results: Lab Results-Last 24 Hours 04/27/17 04/27/17 Range/Units 05:30 05:30 WBC 16.4 H (4.0-10.5) K/mm3 RBC 3.87 L (4.1-5.6) M/mm3 Hgb 11.7 L (12.5-18.0) gm/dl Hct 35.6 L (42-50) % MCV 92.0 (78-100) fl MCH 30.2 (26-32) pg MCHC 32.9 (32-36) g/dl RDW 17.6 H (11.5-14.0) % Plt Count 208 (150-450) K/mm3 MPV 10.4 H (6-9.5) fl Gran % 80.4 H (36.0-66.0) % Lymphocytes % 11.2 L (24.0-44.0) % Monocytes % 7.4 (0.0-12.0) % Eosinophils % 0.6 (0.00-5.0) % Basophils % 0.4 (0.0-0.4) % Basophils # 0.06 (0-0.4) Sodium 139 (137-145) mmol/L Potassium 4.0 (3.5-5.1) mmol/L Chloride 107 (98-107) mmol/L Carbon Dioxide 23 (22-30) mmol/L Anion Gap 13.1 (5-15) MEQ/L BUN 17 (9-20) mg/dL Creatinine 0.99 (0.66-1.25) mg/dL Estimated GFR > 60 ML/MIN Glucose 191 H (74-106) mg/dL Calcium 8.8 (8.4-10.2) mg/dL Total Bilirubin 0.50 (0.2-1.3) mg/dL AST 7 L (17-59) U/L ALT 10 (0-50) U/L Alkaline Phosphatase 62 (38-126) U/L Serum Total Protein 5.9 L (6.3-8.2) g/dL Albumin 3.2 L (3.5-5.0) g/dL Assessment/Plan (1) Sepsis Current Visit: Yes Status: Acute Assessment & Plan: secondary to UTI he is already improving with the fluids and the Rocephin will continue with just the Rocephin await urine culture bp was elevated and is improving restart home meds sugar elevated hold metfomrin and glipizide use sliding scale for now lovenox for ppx (2) UTI (urinary tract infection) Current Visit: Yes Status: Acute Qualifiers: Urinary tract infection type: site unspecified Hematuria presence: without hematuria Qualified Code(s): N39.0 - Urinary tract infection, site not specified Code(s): N39.0 - URINARY TRACT INFECTION, SITE NOT SPECIFIED (3) Type 2 diabetes mellitus Current Visit: Yes Status: Chronic (4) Hypertension Current Visit: Yes Status: Chronic Code(s): I10 - ESSENTIAL (PRIMARY) HYPERTENSION (5) BPH (benign prostatic hyperplasia) Current Visit: Yes Status: Chronic Code(s): N40.0 - BENIGN PROSTATIC HYPERPLASIA WITHOUT LOWER URINRY TRACT SYMP
--- NOTE | 2017-04-27 09:05 | XRAY ---
Indication: Fever. Possible sepsis. Comparison: March 15, 2016. Portable chest again hyperinflated with chronic interstitial lung markings greatest in the left base and a few scattered calcified granulomas. No focal infiltrate, consolidation, or large effusion. Heart and mediastinal structures within normal limits. Bony thorax intact again with mild osteopenia and degenerative changes. Impression: Stable nonacute chest with chronic features.
[2017-04-27] MEDS ORDERED: Zestril 5 MG PO SCH (10:00)
[2017-04-27] MEDS: ZOVIRAX 800 MG PO SCH ×2 (10:48→21:37)
[2017-04-27] MEDS: LACTULOSE 20 GM/30ML UD CUP PO SCH (10:49)
[2017-04-27] MEDS: COREG 12.5 MG PO SCH ×2 (10:49→21:37)
[2017-04-27] MEDS: ENOXAPARIN SODIUM SQ SCH (10:49)
[2017-04-27] MEDS: ECOTRIN 81 MG PO SCH (10:49)
[2017-04-27] MEDS: PRED-FORTE 1% OPHTHALMIC OP SCH (10:50)
[2017-04-27] MEDS: ROCEPHIN 1 Gm-D5w 50 ml Bag** 1 G/50 ML IVPB IV SCH (21:37)
[2017-04-27] MEDS: NovoLOG Insulin SQ PRN (22:25)
[2017-04-28] MEDS: Zestril 10 MG PO SCH (05:07)
[2017-04-28 05:39] LABS: BASOPHIL % 0.4 % (0.0-0.4); Basophil (Absolute #) 0.05 (0-0.4); Eosinophil % 2.9 % (0.00-5.0); Eosinophil (Absolute #) 0.34 (0-0.5); Granulocyte Absolute (ANC) 8.92 (1.4-6.9); Granulocytes % 75.6 % (36.0-66.0); Hematocrit 36.7 % (42-50); Lymphocytes % 13.6 % (24.0-44.0); Mean Cell Volume 92.4 fl (78-100); Mean Corpuscular Hemoglobin 30.2 pg (26-32); Mean Corpuscular Hgb Concent. 32.7 g/dl (32-36); Mean Platelet Volume 10.2 fl (6-9.5); Monocyte (Absolute #) 0.88 (0.0-1.3); Monocytes % 7.5 % (0.0-12.0); Platelet Count 208 K/mm3 (150-450); Red Blood Count 3.97 M/mm3 (4.1-5.6); Red Cell Distribution Width 17.4 % (11.5-14.0); White Blood Count 11.8 K/mm3 (4.0-10.5)
[2017-04-28 06:05] LABS: ANION GAP 14.5 MEQ/L (5-15); BLOOD UREA NITROGEN 17 mg/dL (9-20); CHLORIDE 107 mmol/L (98-107); Calcium 8.8 mg/dL (8.4-10.2); Carbon Dioxide 23 mmol/L (22-30); Creatinine 1 0.93 mg/dL (0.66-1.25); Glucose 172 mg/dL (74-106); SODIUM 141 mmol/L (137-145)
--- NOTE | 2017-04-28 07:33 | PCM.NOTE ---
Date and Time: 04/28/17725 Subjective Assessment: still weakness eating well now less confusion no fevers just mainly fatigue Objective Exam General Appearance: no apparent distress, alert Neurologic Exam: alert, oriented x 3, cooperative, normal mood/affect, nml cerebellar function, sensation nml, No motor deficits Skin Exam: normal color, warm, dry Eye Exam: PERRL, EOMI, eyes nml inspection Ears, Nose, Throat Exam: normal ENT inspection, pharynx normal, moist mucous membranes Neck Exam: normal inspection, non-tender, supple, full range of motion Respiratory Exam: normal breath sounds, lungs clear, No respiratory distress Cardiovascular Exam: regular rate/rhythm, normal heart sounds Gastrointestinal/Abdomen Exam: soft, No tenderness, No mass Extremity Exam: normal inspection, normal range of motion Back Exam: normal inspection, normal range of motion, No CVA tenderness, No vertebral tenderness Male Genitalia Exam: deferred Rectal Exam: deferred OBJECTIVE DATA Vital Signs: Vital Signs - 24 hr Temp Pulse Resp BP Pulse Ox 04/28/17 07:09 98.0 F 90 20 189/91 97 04/28/17 04:00 98.8 F 88 22 185/98 97 04/28/17 00:00 98.3 F 77 22 165/77 97 04/27/17 20:00 98.5 F 84 24 178/81 97 04/27/17 16:00 98.3 F 85 18 148/67 95 04/27/17 12:00 98.5 F 83 18 161/67 95 04/27/17 07:37 98.7 F 85 18 156/69 96 Oxygen-Last 24 hours O2 Percentage 3 Liters = 32% O2 Percentage 3 Liters = 32% O2 Percentage 3 Liters = 32% O2 Percentage 3 Liters = 32% O2 Percentage 3 Liters = 32% O2 Percentage 3 Liters = 32% O2 Percentage 3 Liters = 32% Pain Assessment - Last Documented Pain Intensity 0 Pain Scale Used [facility] Intake and Output: Intake & Output 04/25/17 04/26/17 04/27/17 04/28/17 11:59 11:59 11:59 11:59 Intake Total 3232 Output Total 700 2050 Balance -700 1182 Weight 79.3 kg 78.1 kg Lab Results: Accuchecks Date 04/27/17 Date 04/27/17 Date 04/27/17 Date 04/27/17 Time 22:00 Time 16:30 Time 11:30 Time 07:30 Accucheck Value: 246 Accucheck Value: 184 Accucheck Value: 184 Accucheck Value: 180 Lab Results-Last 24 Hours 04/28/17 04/28/17 Range/Units 05:10 05:10 WBC 11.8 H (4.0-10.5) K/mm3 RBC 3.97 L (4.1-5.6) M/mm3 Hgb 12.0 L (12.5-18.0) gm/dl Hct 36.7 L (42-50) % MCV 92.4 (78-100) fl MCH 30.2 (26-32) pg MCHC 32.7 (32-36) g/dl RDW 17.4 H (11.5-14.0) % Plt Count 208 (150-450) K/mm3 MPV 10.2 H (6-9.5) fl Gran % 75.6 H (36.0-66.0) % Lymphocytes % 13.6 L (24.0-44.0) % Monocytes % 7.5 (0.0-12.0) % Eosinophils % 2.9 (0.00-5.0) % Basophils % 0.4 (0.0-0.4) % Basophils # 0.05 (0-0.4) Sodium 141 (137-145) mmol/L Potassium 4.0 (3.5-5.1) mmol/L Chloride 107 (98-107) mmol/L Carbon Dioxide 23 (22-30) mmol/L Anion Gap 14.5 (5-15) MEQ/L BUN 17 (9-20) mg/dL Creatinine 0.93 (0.66-1.25) mg/dL Estimated GFR > 60 ML/MIN Glucose 172 H (74-106) mg/dL Calcium 8.8 (8.4-10.2) mg/dL Assessment/Plan (1) Sepsis Current Visit: Yes Status: Resolved Assessment & Plan: due to uti on rocephin improving urine culture pending htn worsening fluids stopped this am increased lisinopril from 2.5 to 10 and carvedilol from 12.5 to 25 likely home in am (2) UTI (urinary tract infection) Current Visit: Yes Status: Acute Qualifiers: Urinary tract infection type: site unspecified Hematuria presence: without hematuria Qualified Code(s): N39.0 - Urinary tract infection, site not specified Code(s): N39.0 - URINARY TRACT INFECTION, SITE NOT SPECIFIED (3) Type 2 diabetes mellitus Current Visit: Yes Status: Chronic (4) Hypertension Current Visit: Yes Status: Chronic Code(s): I10 - ESSENTIAL (PRIMARY) HYPERTENSION (5) BPH (benign prostatic hyperplasia) Current Visit: Yes Status: Chronic Code(s): N40.0 - BENIGN PROSTATIC HYPERPLASIA WITHOUT LOWER URINRY TRACT SYMP
[2017-04-28] MEDS: ECOTRIN 81 MG PO SCH (11:00)
[2017-04-28] MEDS: COREG 12.5 MG PO SCH ×2 (11:00→21:40)
[2017-04-28] MEDS: ZOVIRAX 800 MG PO SCH ×2 (11:00→21:40)
[2017-04-28] MEDS: PRED-FORTE 1% OPHTHALMIC OP SCH (11:00)
[2017-04-28] MEDS: ENOXAPARIN SODIUM SQ SCH (11:00)
[2017-04-28] MEDS: LACTULOSE 20 GM/30ML UD CUP PO SCH (11:01)
[2017-04-28] MEDS: NovoLOG Insulin SQ PRN ×3 (12:31→21:43)
[2017-04-28] MEDS: ROCEPHIN 1 Gm-D5w 50 ml Bag** 1 G/50 ML IVPB IV SCH (21:43)
--- NOTE | 2017-04-29 07:44 | PCM.DS ---
Discharge Summary Date of Admission: 04/26/17 23:26 Date of Discharge: 04/29/2017 Admitting Physician: ARLENE BALDWIN Primary Care Provider: ARLENE BALDWIN Allergies Allergies celecoxib [From Celebrex] Adverse Reaction (Verified 04/26/17 21:57) kidney failure Hospital Summary - Hospital Course Hospital Course: Mr. Stinson has history of bph with urinary outflow obstruction and self caths. He has history of recurrent UTI and was becoming weak and confused at home with fever and EMS was called brought to ED found to have UTI with sepsis. He was treated and improved with Rocephin. Symptoms resolved. He had elevated bp throughout stay and the carvedilol and lisinopril were increased and he will f/ u outpatient for futher titration of this. Culture showes K. Pneumonia sensitive to all tested except bactrim. - Vitals & Intake/Output Vital Signs: Vital Signs Temperature 98.6 F 04/29/17 04:05 Pulse Rate 87 04/29/17 04:05 Respiratory Rate 18 04/29/17 04:05 Blood Pressure 177/83 04/29/17 04:05 O2 Sat by Pulse Oximetry 92 L 04/29/17 04:05 Oxygen-Last Documented O2 Percentage 3 Liters = 32% Intake & Output: Intake & Output 04/26/17 04/27/17 04/28/17 04/29/17 11:59 11:59 11:59 11:59 Intake Total 3472 860 Output Total 700 2050 1450 Balance -700 1422 -590 Weight 79.3 kg 78.1 kg 78.1 kg - Lab Result Diagrams: 04/28/17 05:10 04/28/17 05:10 Lab Results-Last 24 Hrs: Accuchecks Date 04/28/17 Date 04/28/17 Date 04/28/17 Time 22:00 Time 16:30 Time 11:30 Accucheck Value: 253 Accucheck Value: 257 Accucheck Value: 228 Lab Results-Last 24 Hours 04/28/17 Range/Units 05:10 Hemoglobin A1c 7.39 H (4.5-6.0) % Micro Results-Entire Visit: Accuchecks Date 04/28/17 Date 04/28/17 Date 04/28/17 Time 22:00 Time 16:30 Time 11:30 Accucheck Value: 253 Accucheck Value: 257 Accucheck Value: 228 Discharge Exam General Appearance: no apparent distress, alert Neurologic Exam: alert, oriented x 3, cooperative, normal mood/affect, nml cerebellar function, sensation nml, No motor deficits Skin Exam: normal color, warm, dry Eye Exam: PERRL, EOMI, eyes nml inspection Ears, Nose, Throat Exam: normal ENT inspection, pharynx normal, moist mucous membranes Neck Exam: normal inspection, non-tender, supple, full range of motion Respiratory Exam: normal breath sounds, lungs clear, No respiratory distress Cardiovascular Exam: regular rate/rhythm, normal heart sounds Gastrointestinal/Abdomen Exam: soft, No tenderness, No mass Extremity Exam: normal inspection, normal range of motion Back Exam: normal inspection, normal range of motion, No CVA tenderness, No vertebral tenderness Male Genitalia Exam: deferred Rectal Exam: deferred Final Diagnosis/Problem List - Final Discharge Diagnosis/Problem (1) Sepsis Current Visit: Yes Status: Resolved (2) UTI (urinary tract infection) Current Visit: Yes Status: Acute (3) Type 2 diabetes mellitus Current Visit: Yes Status: Chronic (4) Hypertension Current Visit: Yes Status: Chronic (5) BPH (benign prostatic hyperplasia) Current Visit: Yes Status: Chronic - Discharge Discharge Date: 04/29/17 Disposition: Home, Self-Care Condition: Fair Prescriptions: New Carvedilol [Coreg] 25 mg PO BID #60 tablet Cephalexin Mh 500 mg [Keflex 500 mg] 500 mg PO BID #14 capsule Lisinopril 10 mg [Zestril 10 MG] 10 mg PO DAILY #30 tablet Continue Prednisolone Acetate OPHTH [Pred-Forte 1% Ophthalmic] 1 drop OP DAILY Aspirin [Aspirin EC] 81 mg PO DAILY Metformin HCl 1000 mg [Glucophage 1000 MG] 500 mg PO BID Ergocalciferol (Vitamin D2) [Vitamin D2] 50,000 unit PO UD Lactulose [Lactulose 20 gm/30Ml Ud Cup] 5 gm PO DAILY Acyclovir 800 mg [Zovirax 800 mg] 800 mg PO BID Glipizide 5 mg [Glucotrol 5 MG] 5 mg PO DAILY Glipizide 2.5 mg [Glucotrol Xl 2.5 MG] 2.5 mg PO HS Hydrocodone/Acetaminophen [Hydrocodone-Acetamin 5-325 mg] 5 - 325 mg PO BID Discontinued Lisinopril 5 mg [Zestril 5 MG] 2.5 mg PO DAILY Carvedilol 12.5 mg [Coreg 12.5 mg] 12.5 mg PO BID Ciprofloxacin HCl 500 mg PO BID Follow up with: ARLENE BALDWIN [Primary Care Provider] - 1 Week
[2017-04-29 07:56] VITALS: BP 171/84; PULSE 91; O2SAT 93
[2017-04-29] MEDS: ECOTRIN 81 MG PO SCH (09:27)
[2017-04-29] MEDS: ZOVIRAX 800 MG PO SCH (09:27)
[2017-04-29] MEDS: COREG 12.5 MG PO SCH (09:27)
[2017-04-29] MEDS: Zestril 10 MG PO SCH (09:27)
[2017-04-29] MEDS: PRED-FORTE 1% OPHTHALMIC OP SCH (09:27)
== END 2017-04-29 09:55 | disposition home or self-care (01) | DRG 872 ==
LOC: ED 19:13 → MED SURG 23:26
PROVIDERS: ADMIT Family Medicine; ATTEND Family Medicine
DX: A41.9 Sepsis, unspecified organism (principal); N39.0 Urinary tract infection, site not specified; E11.9 Type 2 diabetes mellitus without complications; Z79.4 Long term (current) use of insulin; I10 Essential (primary) hypertension; N40.0 Benign prostatic hyperplasia without lower urinary tract symptoms; E78.5 Hyperlipidemia, unspecified; E78.00 Pure hypercholesterolemia, unspecified; M19.90 Unspecified osteoarthritis, unspecified site; N28.9 Disorder of kidney and ureter, unspecified; Z87.891 Personal history of nicotine dependence; Z79.899 Other long term (current) drug therapy
CPT/HCPCS: 36415; 51702; 71045; 80048; 80053; 81000; 82805; 82962; 83036; 83605; 85025; 85610; 85730; 87040; 87077; 87086; 87186; 93041; 96360; 96361; 96365; 96366; 99285; J0696; J1650; A9270-GY

== ENCOUNTER 2017-07-12 18:32 | Inpatient (IN) | payer MEDICARE ==
[2017-07-12] MEDS ORDERED: Sodium Chloride 0.9% 1000 ML 1,000 ML IV STA ×2 (19:28→22:08)
[2017-07-12] MEDS ORDERED: TYLENOL 325 MG PO STA (19:28)
--- NOTE | 2017-07-12 19:28 | ERPHSYRPT ---
- History of Present Illness Time Seen by Provider: 07/12/17 19:21 Source: patient Exam Limitations: no limitations Patient Subjective Stated Complaint: UTI, back pain Triage Nursing Assessment: pt is alert and oriented. pt came via wheelchair. pt is tachycardic, and hypertensive, pt resp rate is 32 and 87% on RA, placed pt on 2L and then he sat at 93%. placed pt on 3L up to 94%. Physician History: The patient is an 82-year-old male with his complaining that he had a fever at home today of 101 and was weak in his legs. He was unable to stand and walk. He gets this way when he has an infection. He has had recent UTIs. 2 years ago he had surgery on his prostate. He denies cough. He denies nausea , vomiting, or diarrhea. He went to [facility] and was found to have a temperature of 102. They sent him to the ER. His past medical history is significant for diabetes, hypertension, BPH, frequent UTIs for which he is taking cephalexin as a prophylactic antibiotic, possible early Parkinson's disease. Timing/Duration: today, gradual onset, worse Fever Severity: severe Fever Therapy DRESS OPERATOR: none Associated Symptoms: muscle aches, weakness Allergies/Adverse Reactions: celecoxib [From Celebrex] Adverse Reaction (Verified 04/26/17 21:57) kidney failure Home Medications: Aspirin [Aspirin EC] 81 mg PO DAILY 07/18/15 [History] Metformin HCl 1000 mg [Glucophage 1000 MG] 500 mg PO BID 07/18/15 [History] Prednisolone Acetate OPHTH [Pred-Forte 1% Ophthalmic] 1 drop OP DAILY 11/22 [History] Acyclovir 800 mg [Zovirax 800 mg] 800 mg PO BID 04/26/17 [History] Ergocalciferol (Vitamin D2) [Vitamin D2] 50,000 unit PO UD 04/26/17 [History] Glipizide 2.5 mg [Glucotrol Xl 2.5 MG] 2.5 mg PO HS 04/26/17 [History] Glipizide 5 mg [Glucotrol 5 MG] 5 mg PO DAILY 04/26/17 [History] Lactulose [Lactulose 20 gm/30Ml Ud Cup] 5 gm PO DAILY 04/26/17 [History] Hydrocodone/Acetaminophen [Hydrocodone-Acetamin 5-325 mg] 5 - 325 mg PO BID [History] Carbidopa/Levodopa [Carbidopa-Levo 10-100 mg Odt] 1 tab PO TID 07/12/17 [History ] Hx Tetanus, Diphtheria Vaccination/Date Given: Yes Hx Influenza Vaccination/Date Given: Yes Hx Pneumococcal Vaccination/Date Given: Yes Immunizations Up to Date: Yes - Review of Systems Constitutional: Fever, Weakness Eyes: No Symptoms Ears, Nose, & Throat: No Symptoms Respiratory: No Cough, No Dyspnea Cardiac: No Chest Pain, No Edema, No Syncope Abdominal/Gastrointestinal: No Abdominal Pain, No Nausea, No Vomiting, No Diarrhea Genitourinary Symptoms: No Dysuria Musculoskeletal: No Back Pain, No Neck Pain Skin: No Rash Neurological: No Dizziness, No Focal Weakness, No Sensory Changes Psychological: No Symptoms Endocrine: No Symptoms Hematologic/Lymphatic: No Symptoms Immunological/Allergic: No Symptoms All Other Systems: Reviewed and Negative - Past Medical History Pertinent Past Medical History: Yes Neurological History: No Pertinent History ENT History: Other Cardiac History: High Cholesterol, Hypertension Respiratory History: No Pertinent History Endocrine Medical History: Diabetes Type II Musculoskeletal History: Arthritis GI Medical History: Hernia History: Renal Disease, Other Psycho-Social History: No Pertinent History Male Reproductive Disorders: Prostate Problems Other Medical History: recent herpes infection of the right eye /pt self caths following prostate surgery 2015 - Past Surgical History Past Surgical History: Yes Neuro Surgical History: No Pertinent History Cardiac: No Pertinent History Respiratory: No Pertinent History Gastrointestinal: Hernia Repair Genitourinary: Other Musculoskeletal: No Pertinent History Male Surgical History: Prostate Surgery Other Surgical History: hernia repair times 3/prostate sx. august 2015 - Social History Smoking Status: Former smoker How long have you smoked: 20 years Exposure to second hand smoke: No Drug Use: none Patient Lives Alone: No - Nursing Vital Signs Nursing Vital Signs: Initial Vital Signs Temperature 103.4 F 07/12/17 18:33 Pulse Rate 131 H 07/12/17 18:33 Respiratory Rate 32 H 07/12/17 18:33 Blood Pressure 210/111 07/12/17 18:33 O2 Sat by Pulse Oximetry 93 L 07/12/17 18:33 Pain Scale Pain Intensity 0 - Physical Exam General Appearance: mild distress Eye Exam: PERRL/EOMI ENT Exam: normal ENT inspection, No pharyngeal erythema, No tonsillar exudate Neck Exam: supple, full range of motion, No meningismus Respiratory Exam: normal breath sounds, lungs clear, no respiratory distress Cardiovascular/Chest Exam: normal heart sounds, regular rate/rhythm, No murmur, No edema Gastrointestinal/Abdominal Exam: soft, non tender, no distention Rectal Exam: not done Extremity Exam: non-tender, normal range of motion, normal inspection, normal capillary refill Neurologic Exam: alert, oriented x 3, cooperative, state game protector II-XII nml as tested, normal mood/affect, sensation nml, No motor deficits Skin Exam: normal color, warm, dry, No rash Lymphatic: adenopathy SpO2 Interpretation: borderline oxygenation SpO2: 93 Oxygen Delivery: Nasal Cannula Ordered Tests: Active Orders 24 hr Category Date Time Status Cath for Specimen-Straight STAT Care 07/12/17 19:28 Active IV Insertion STAT Care 07/12/17 19:28 Active Pulse Oximetry (ED) STAT Care 07/12/17 19:28 Active BLOOD CULTURE Stat Lab 07/12/17 19:28 Ordered BMP Stat Lab 07/12/17 19:28 Completed CBC W DIFF Stat Lab 07/12/17 19:28 Completed Lactic Acid Stat Lab 07/12/17 19:57 Completed Manual Differential NC Stat Lab 07/12/17 19:28 Completed UA W/ MICROSCOPIC Stat Lab 07/12/17 20:50 Completed Medication Summary Generic Name Dose Route Start Last Admin Trade Name Freq PRN Reason Stop Dose Admin Sodium Chloride 1,000 mls @ 999 mls/hr 07/12/17 22:08 07/12/17 22:13 Sodium Chloride 0.9% 1000 Ml IV 07/12/17 23:08 999 mls/hr .Q1H1M STA Administration Discontinued Medications Generic Name Dose Route Start Last Admin Trade Name Freq PRN Reason Stop Dose Admin Acetaminophen 975 mg 07/12/17 19:28 07/12/17 19:41 Tylenol 325 Mg PO 07/12/17 19:29 975 mg STAT STA Administration Acetaminophen Confirm 07/12/17 19:39 Tylenol 325 Mg Administered 07/12/17 19:40 Dose 975 mg .ROUTE .STK-MED ONE Sodium Chloride 1,000 mls @ 999 mls/hr 07/12/17 19:28 07/12/17 19:41 Sodium Chloride 0.9% 1000 Ml IV 07/12/17 20:28 999 mls/hr .Q1H1M STA Administration Sodium Chloride Confirm 07/12/17 19:39 Sodium Chloride 0.9% 1000 Ml Administered 07/12/17 19:40 Dose 1,000 mls @ ud .ROUTE .STK-MED ONE Ceftriaxone Sodium/Dextrose 1 g in 50 mls @ 100 mls/hr 07/12/17 20:19 20:29 Rocephin 1 Gm-D5w 50 Ml Bag IV 07/12/17 20:48 100 mls/hr STAT STA 100 mls/hr Administration Ceftriaxone Sodium/Dextrose Confirm 07/12/17 20:24 Rocephin 1 Gm-D5w 50 Ml Bag Administered 07/12/17 20:25 Dose 1 g in 50 mls @ ud IV .STK-MED ONE Sodium Chloride Confirm 07/12/17 22:13 Sodium Chloride 0.9% 1000 Ml Administered 07/12/17 22:14 Dose 1,000 mls @ ud .ROUTE .STK-MED ONE Lab/Rad Data: Laboratory Result Diagrams 07/12/17 19:28 07/12/17 19:28 Laboratory Results 07/12/17 07/12/17 07/12/17 Range/Units 20:50 19:57 19:28 WBC (4.0-10.5) K/mm3 RBC (4.1-5.6) M/mm3 Hgb (12.5-18.0) gm/dl Hct (42-50) % MCV (78-100) fl MCH (26-32) pg MCHC (32-36) g/dl RDW (11.5-14.0) % Plt Count (150-450) K/mm3 MPV (6-9.5) fl Absolute Granulocytes (1.4-6.9) Segmented Neutrophils (36.-66.) % Band Neutrophils (0.0-2.0) % Lymphocytes (Manual) (24-44) % Monocytes (Manual) (0.0-12.0) % Eosinophils (Manual) (0.00-3.0) % Platelet Estimate (NORMAL) RBC Morphology Sodium 141 (137-145) mmol/L Potassium 4.5 (3.5-5.1) mmol/L Chloride 103 (98-107) mmol/L Carbon Dioxide 25 (22-30) mmol/L Anion Gap 17.5 H (5-15) MEQ/L BUN 27 H (9-20) mg/dL Creatinine 1.07 (0.66-1.25) mg/dL Estimated GFR > 60.0 ML/MIN Glucose 226 H (74-106) mg/dL Lactic Acid 1.7 (0.4-2.0) Calcium 9.7 (8.4-10.2) mg/dL Ur Collection Type VOID Urine Color YELLOW (YELLOW) Urine Appearance CLOUDY (CLEAR) Urine pH 7.0 (5-6) Ur Specific [place] 1.010 (1.005-1.025) Urine Protein 100 (Negative) Urine Ketones MODERATE (NEGATIVE) Urine Blood 250 (0-5) Baldo/ul Urine Nitrite NEGATIVE (NEGATIVE) Urine Bilirubin NEGATIVE (NEGATIVE) Urine Urobilinogen NORMAL (0-1) mg/dL Ur Leukocyte Esterase 1+ (NEGATIVE) Urine Microscopic RBC 10-15 (0-2) /HPF Urine Microscopic WBC 25-50 (0-5) /HPF Ur Epithelial Cells FEW (FEW) /HPF Urine Bacteria RARE (NEGATIVE) /HPF Urine Culture Reflexed YES (NO) Urine Glucose 250 (NEGATIVE) mg/dL Specimen Received 07/12/17205407/12/17 Range/Units 19:28 WBC 26.8 H* (4.0-10.5) K/mm3 RBC 4.71 (4.1-5.6) M/mm3 Hgb 14.8 (12.5-18.0) gm/dl Hct 44.3 (42-50) % MCV 94.1 (78-100) fl MCH 31.4 (26-32) pg MCHC 33.4 (32-36) g/dl RDW 15.7 H (11.5-14.0) % Plt Count 233 (150-450) K/mm3 MPV 11.0 H (6-9.5) fl Absolute Granulocytes 24.27 H (1.4-6.9) Segmented Neutrophils 87 H (36.-66.) % Band Neutrophils 6 H (0.0-2.0) % Lymphocytes (Manual) 3 L (24-44) % Monocytes (Manual) 3 (0.0-12.0) % Eosinophils (Manual) 1 (0.00-3.0) % Platelet Estimate NORMAL (NORMAL) RBC Morphology NORMAL Sodium (137-145) mmol/L Potassium (3.5-5.1) mmol/L Chloride (98-107) mmol/L Carbon Dioxide (22-30) mmol/L Anion Gap (5-15) MEQ/L BUN (9-20) mg/dL Creatinine (0.66-1.25) mg/dL Estimated GFR ML/MIN Glucose (74-106) mg/dL Lactic Acid (0.4-2.0) Calcium (8.4-10.2) mg/dL Ur Collection Type Urine Color (YELLOW) Urine Appearance (CLEAR) Urine pH (5-6) Ur Specific [place] (1.005-1.025) Urine Protein (Negative) Urine Ketones (NEGATIVE) Urine Blood (0-5) Baldo/ul Urine Nitrite (NEGATIVE) Urine Bilirubin (NEGATIVE) Urine Urobilinogen (0-1) mg/dL Ur Leukocyte Esterase (NEGATIVE) Urine Microscopic RBC (0-2) /HPF Urine Microscopic WBC (0-5) /HPF Ur Epithelial Cells (FEW) /HPF Urine Bacteria (NEGATIVE) /HPF Urine Culture Reflexed (NO) Urine Glucose (NEGATIVE) mg/dL Specimen Received - Progress Progress: improved Discussed with : Madeline Will see patient in: hospital (observation) (for Dr Anna Baldwin) Counseled pt/family regarding: lab results, diagnosis - Departure Time of Disposition: 22:21 Departure Disposition: Observation (Per Dr Correa for Dr Anna Baldwin) Clinical Impression: UTI (urinary tract infection) Condition: Stable Critical Care Time: No Referrals: ARLENE BALDWIN [Primary Care Provider] -
[2017-07-12] MEDS ORDERED: Sodium Chloride 0.9% 1000 ML 1,000 ML ONE (19:39)
[2017-07-12] MEDS ORDERED: TYLENOL 325 MG ONE (19:39)
[2017-07-12 19:41] LABS: Granulocyte Absolute (ANC) 24.27 (1.4-6.9); Hematocrit 44.3 % (42-50); Hemoglobin 14.8 gm/dl (12.5-18.0); Mean Cell Volume 94.1 fl (78-100); Mean Corpuscular Hemoglobin 31.4 pg (26-32); Mean Corpuscular Hgb Concent. 33.4 g/dl (32-36); Platelet Count 233 K/mm3 (150-450); Red Blood Count 4.71 M/mm3 (4.1-5.6); Red Cell Distribution Width 15.7 % (11.5-14.0)
[2017-07-12 19:45] LABS: ANION GAP 17.5 MEQ/L (5-15); BLOOD UREA NITROGEN 27 mg/dL (9-20); CHLORIDE 103 mmol/L (98-107); Calcium 9.7 mg/dL (8.4-10.2); Carbon Dioxide 25 mmol/L (22-30); Creatinine 1 1.07 mg/dL (0.66-1.25); Glucose 226 mg/dL (74-106); Potassium 4.5 mmol/L (3.5-5.1); SODIUM 141 mmol/L (137-145)
[2017-07-12 19:55] LABS: White Blood Count 26.8 K/mm3 (4.0-10.5)
[2017-07-12] MEDS ORDERED: ROCEPHIN 1 Gm-D5w 50 ml Bag** 1 G/50 ML IVPB IV STA (20:19)
[2017-07-12] MEDS ORDERED: ROCEPHIN 1 Gm-D5w 50 ml Bag** 1 G/50 ML IVPB IV ONE (20:24)
[2017-07-12 21:25] LABS: Appearance CLOUDY (CLEAR); Glucose 250 mg/dL (NEGATIVE); Leukocyte Esterase 1+ (NEGATIVE); Nitrite NEGATIVE (NEGATIVE); Protein,Urine Dip 100 (Negative)
[2017-07-12 21:26] LABS: Ketones MODERATE (NEGATIVE)
[2017-07-12 21:27] LABS: Bilirubin NEGATIVE (NEGATIVE); Blood 250 Ery/ul (0-5); Urobilinogen NORMAL mg/dL (0-1)
[2017-07-12 21:40] LABS: BAND 6 % (0.0-2.0); Eosinophil 1 % (0.00-3.0); Lymphocytes 3 % (24-44); Monocyte 3 % (0.0-12.0); Neutrophils 87 % (36.-66.); Total Cells Counted 100
[2017-07-12 21:41] LABS: Bacteria RARE /HPF (NEGATIVE); Epithelial Cells FEW /HPF (FEW); WBC 25-50 /HPF (0-5)
[2017-07-12 21:41] LABS: Platelet Estimate NORMAL (NORMAL)
[2017-07-12] MEDS ORDERED: Sodium Chloride 0.9% 1000 ML 2,000 ML ONE (22:13)
[2017-07-12] MEDS ORDERED: Zofran 4 MG/2 ML VIAL IV PRN (23:02)
[2017-07-12] MEDS ORDERED: TYLENOL 325 MG PO PRN (23:02)
[2017-07-12] MEDS: Sodium Chloride 0.9% 1000 ML 1,000 ML IV SCH (23:34)
[2017-07-13 05:33] LABS: Granulocyte Absolute (ANC) 19.17 (1.4-6.9); Hematocrit 36.9 % (42-50); Hemoglobin 12.2 gm/dl (12.5-18.0); Mean Cell Volume 95.1 fl (78-100); Mean Corpuscular Hemoglobin 31.4 pg (26-32); Mean Corpuscular Hgb Concent. 33.1 g/dl (32-36); Mean Platelet Volume 10.5 fl (6-9.5); Platelet Count 176 K/mm3 (150-450); Red Blood Count 3.88 M/mm3 (4.1-5.6); Red Cell Distribution Width 15.4 % (11.5-14.0); White Blood Count 22.6 K/mm3 (4.0-10.5)
[2017-07-13 06:01] LABS: ANION GAP 10.6 MEQ/L (5-15); BLOOD UREA NITROGEN 22 mg/dL (9-20); CHLORIDE 109 mmol/L (98-107); Calcium 8.6 mg/dL (8.4-10.2); Carbon Dioxide 23 mmol/L (22-30); Creatinine 1 0.89 mg/dL (0.66-1.25); Glucose 175 mg/dL (74-106); SODIUM 139 mmol/L (137-145)
[2017-07-13 07:17] LABS: ANISOCYTOSIS 1+; BAND 8 % (0.0-2.0); Lymphocytes 7 % (24-44); Monocyte 5 % (0.0-12.0); Neutrophils 80 % (36.-66.); Platelet Estimate NORMAL (NORMAL); Polychromasia 1+; Total Cells Counted 100
[2017-07-13] MEDS ORDERED: NovoLOG Insulin SQ PRN (08:32)
--- NOTE | 2017-07-13 08:47 | HP ---
CHIEF COMPLAINT: Urinary tract infection, back pain. HISTORY OF PRESENT ILLNESS: The patient is an 82 year-old white male patient who has frequent urinary tract infections who apparently has had prostate problems before and prostatectomy. He has been unable to urinate without doing self-catheterizations which he has been doing for the past two years. Apparently the patient occasionally gets infected from this. He reports he is very careful with it but this still occasionally happens and he generally just gets to feeling weak when he has this. The patient is known to have a fever and was seen in [facility] and was sent to the emergency room. By that time his fever was up to 103F. He was given IV Rocephin and Levaquin in the emergency room and admitted to the hospital for further evaluation and management. PAST MEDICAL HISTORY: Otherwise significant for diabetes mellitus type 2 on insulin. He also has Parkinson's disease. HOME MEDICATIONS: Pred-Forte eye drops, acyclovir 100 mg b.i.d., vitamin D 50,000 units weekly, Glucotrol 2.5 mg at night, glipizide 5 mg daily, lactulose syrup, hydrocodone 5/325 mg b.i.d. for pain, carbidopa-levodopa 10/100 t.i.d. ALLERGIES: CELEBREX. PHYSICAL EXAMINATION: Revealed a well nourished, well developed, elderly white male patient currently pleasant and in no distress. His initial vital signs showed his temperature to be 103.4F, pulse 131, respiratory rate 32, blood pressure 210/111. O2 saturation 93% on room air. The patient's most recent vital signs showed temperature 99.3F, pulse 102, respiratory rate 20, blood pressure 177/90. O2 saturation 96%. HEENT: Normocephalic, atraumatic. Pupils equal round reactive to light. Extraocular movements intact. Oropharynx is pink and moist. NECK: Supple without lymphadenopathy, thyromegaly or JVD. CHEST: Clear to auscultation with good air movement bilaterally. HEART: Regular rate and rhythm without murmurs, rubs or gallops. ABDOMEN: Soft. No palpable masses. EXTREMITIES: Without clubbing, cyanosis or edema. NEUROLOGIC: The patient is alert and oriented x3. LAB DATA AND TESTS: On initial evaluation lactic acid 1.7. His urine showed 25-50 white blood cells per high power field. Nitrite negative however. Ketones were moderate. Bacteria rare. His metabolic panel showed glucose 226, BUN 27, creatinine 1.07. Electrolytes were normal. His white blood cell count was 26,800. Hemoglobin 14.8, PLT count 233,000. He did have left shift with 6 bands and 87 polys. ASSESSMENT: A patient with probable pyelonephritis. He has been admitted to the hospital for IV antibiotics. He has been placed empirically on Rocephin and Levaquin pending urinary cultures and blood cultures are also pending as well. The patient will be continued on his usual home medications, will place him on low sliding scale coverage for coverage of his sugar.
[2017-07-13] MEDS: Sodium Chloride 0.9% 1000 ML 1,000 ML IV SCH ×2 (09:50→19:56)
[2017-07-13] MEDS: Sinemet 10/100 MG PO SCH ×3 (09:51→21:58)
[2017-07-13] MEDS: LACTULOSE 20 GM/30ML UD CUP PO SCH (09:52)
[2017-07-13] MEDS: Zestril 10 MG PO SCH (09:52)
[2017-07-13] MEDS: ZOVIRAX 200 MG PO SCH ×3 (09:52→21:58)
[2017-07-13] MEDS: Glucotrol 5 MG PO SCH (09:52)
[2017-07-13] MEDS: COREG 12.5 MG PO SCH ×2 (09:52→21:58)
[2017-07-13] MEDS: ECOTRIN 81 MG PO SCH (09:52)
[2017-07-13] MEDS: NORCO 5/325 MG PO SCH ×2 (09:53→21:58)
[2017-07-13] MEDS ORDERED: CARBIDOPA PO SCH (10:00)
[2017-07-13] MEDS ORDERED: NON-FORMULARY ITEM (Carvedilol [Coreg] 25 MG) PO SCH (10:00)
[2017-07-13] MEDS ORDERED: KEFLEX 500 MG PO SCH (10:00)
[2017-07-13] MEDS ORDERED: METFORMIN HCL PO SCH (10:00)
[2017-07-13] MEDS ORDERED: ZOVIRAX 800 MG PO SCH (10:00)
[2017-07-13] MEDS ORDERED: LEVODOPA PO SCH (10:00)
[2017-07-13] MEDS ORDERED: Levofloxacin 500MG/100ML D5W 500 MG/100 ML BAG IV SCH (10:00)
[2017-07-13] MEDS: PRED-FORTE 1% OPHTHALMIC OP SCH (11:25)
[2017-07-13] MEDS: Glucophage 500 MG PO SCH ×2 (12:13→16:58)
[2017-07-13] MEDS: Levofloxacin 500MG/100ML D5W 500 MG/100 ML BAG IV SCH (21:57)
[2017-07-13] MEDS: Glucotrol Xl 2.5 MG PO SCH (21:58)
[2017-07-13] MEDS ORDERED: ROCEPHIN 1 Gm-D5w 50 ml Bag** 1 G/50 ML IVPB IV SCH (22:00)
[2017-07-14 05:46] LABS: BASOPHIL % 0.3 % (0.0-0.4); Basophil (Absolute #) 0.04 (0-0.4); Eosinophil % 2.3 % (0.00-5.0); Eosinophil (Absolute #) 0.35 (0-0.5); Granulocyte Absolute (ANC) 12.17 (1.4-6.9); Granulocytes % 81.3 % (36.0-66.0); Hematocrit 34.2 % (42-50); Hemoglobin 11.2 gm/dl (12.5-18.0); Lymphocytes % 9.3 % (24.0-44.0); Mean Cell Volume 96.6 fl (78-100); Mean Corpuscular Hemoglobin 31.6 pg (26-32); Mean Corpuscular Hgb Concent. 32.7 g/dl (32-36); Mean Platelet Volume 10.7 fl (6-9.5); Monocyte (Absolute #) 1.02 (0.0-1.3); Monocytes % 6.8 % (0.0-12.0); Platelet Count 145 K/mm3 (150-450); Red Blood Count 3.54 M/mm3 (4.1-5.6); Red Cell Distribution Width 15.9 % (11.5-14.0)
[2017-07-14 06:20] LABS: ALBUMIN 2.8 g/dL (3.5-5.0); ALKALINE PHOSPHATASE 56 U/L (38-126); ANION GAP 12.6 MEQ/L (5-15); BLOOD UREA NITROGEN 16 mg/dL (9-20); CHLORIDE 107 mmol/L (98-107); Calcium 8.4 mg/dL (8.4-10.2); Carbon Dioxide 24 mmol/L (22-30); Creatinine 1 0.91 mg/dL (0.66-1.25); Glucose 135 mg/dL (74-106); SGOT/AST 6 U/L (17-59); SGPT/ALT 6 U/L (0-50); SODIUM 139 mmol/L (137-145); Total Protein 5.3 g/dL (6.3-8.2)
[2017-07-14] MEDS: Sodium Chloride 0.9% 1000 ML 1,000 ML IV SCH (06:59)
[2017-07-14] MEDS: Glucophage 500 MG PO SCH ×3 (07:48→16:24)
[2017-07-14] MEDS: ENOXAPARIN SODIUM SQ SCH (09:35)
[2017-07-14] MEDS: ZOVIRAX 200 MG PO SCH ×3 (09:35→22:31)
[2017-07-14] MEDS: Zestril 10 MG PO SCH (09:36)
[2017-07-14] MEDS: Glucotrol 5 MG PO SCH (09:36)
[2017-07-14] MEDS: LACTULOSE 20 GM/30ML UD CUP PO SCH (09:36)
[2017-07-14] MEDS: Sinemet 10/100 MG PO SCH ×3 (09:36→22:30)
[2017-07-14] MEDS: COREG 12.5 MG PO SCH ×2 (09:36→22:31)
[2017-07-14] MEDS: PRED-FORTE 1% OPHTHALMIC OP SCH (09:36)
[2017-07-14] MEDS: ECOTRIN 81 MG PO SCH (09:36)
[2017-07-14] MEDS: NORCO 5/325 MG PO SCH ×2 (09:46→22:30)
[2017-07-14] MEDS: Glucotrol Xl 2.5 MG PO SCH (22:30)
[2017-07-14] MEDS: Levofloxacin 500MG/100ML D5W 500 MG/100 ML BAG IV SCH (22:30)
[2017-07-15 05:53] LABS: BASOPHIL % 0.4 % (0.0-0.4); Basophil (Absolute #) 0.04 (0-0.4); Eosinophil % 4.2 % (0.00-5.0); Eosinophil (Absolute #) 0.43 (0-0.5); Granulocyte Absolute (ANC) 7.71 (1.4-6.9); Granulocytes % 75.1 % (36.0-66.0); Hematocrit 35.7 % (42-50); Hemoglobin 11.7 gm/dl (12.5-18.0); Lymphocyte (Absolute #) 1.36 (1.0-4.6); Lymphocytes % 13.2 % (24.0-44.0); Mean Cell Volume 96.7 fl (78-100); Mean Corpuscular Hemoglobin 31.7 pg (26-32); Mean Corpuscular Hgb Concent. 32.8 g/dl (32-36); Mean Platelet Volume 10.7 fl (6-9.5); Monocyte (Absolute #) 0.73 (0.0-1.3); Monocytes % 7.1 % (0.0-12.0); Platelet Count 149 K/mm3 (150-450); Red Blood Count 3.69 M/mm3 (4.1-5.6); Red Cell Distribution Width 15.7 % (11.5-14.0); White Blood Count 10.3 K/mm3 (4.0-10.5)
[2017-07-15 05:59] LABS: ANION GAP 12.1 MEQ/L (5-15); BLOOD UREA NITROGEN 14 mg/dL (9-20); CHLORIDE 108 mmol/L (98-107); Calcium 8.7 mg/dL (8.4-10.2); Carbon Dioxide 24 mmol/L (22-30); Creatinine 1 0.87 mg/dL (0.66-1.25); Glucose 138 mg/dL (74-106); Potassium 3.9 mmol/L (3.5-5.1); SODIUM 140 mmol/L (137-145)
[2017-07-15] MEDS ORDERED: Sodium Chloride 0.9% 10 ML FLUSH Syringe IV PRN (07:10)
--- NOTE | 2017-07-15 07:38 | PCM.DCORD ---
- Discharge Discharge Date: 07/15/17 Prescriptions: New Levofloxacin [Levaquin] 500 mg PO DAILY #7 tablet Continue Prednisolone Acetate OPHTH [Pred-Forte 1% Ophthalmic] 1 drop OP DAILY Aspirin [Aspirin EC] 81 mg PO DAILY Metformin HCl 1000 mg [Glucophage 1000 MG] 500 mg PO BID Ergocalciferol (Vitamin D2) [Vitamin D2] 50,000 unit PO UD Lactulose [Lactulose 20 gm/30Ml Ud Cup] 5 gm PO DAILY Acyclovir 800 mg [Zovirax 800 mg] 800 mg PO BID Glipizide 5 mg [Glucotrol 5 MG] 5 mg PO DAILY Glipizide 2.5 mg [Glucotrol Xl 2.5 MG] 2.5 mg PO HS Hydrocodone/Acetaminophen [Hydrocodone-Acetamin 5-325 mg] 5 - 325 mg PO BID Carvedilol [Coreg] 25 mg PO BID #60 tablet Cephalexin Mh 500 mg [Keflex 500 mg] 500 mg PO BID #14 capsule Lisinopril 10 mg [Zestril 10 MG] 10 mg PO DAILY #30 tablet Carbidopa/Levodopa [Carbidopa-Levo 10-100 mg Odt] 1 tab PO TID Instructions: Urinary Tract Infection, Adult (DC), How to Catheterize Yourself , Male
[2017-07-15] MEDS: ZOVIRAX 200 MG PO SCH (07:44)
[2017-07-15] MEDS: Glucophage 500 MG PO SCH (07:45)
[2017-07-15] MEDS: ECOTRIN 81 MG PO SCH (07:45)
[2017-07-15] MEDS: Glucotrol 5 MG PO SCH (07:45)
[2017-07-15] MEDS: Zestril 10 MG PO SCH (07:45)
[2017-07-15] MEDS: COREG 12.5 MG PO SCH (07:46)
[2017-07-15] MEDS: ENOXAPARIN SODIUM SQ SCH (07:47)
[2017-07-15] MEDS: LACTULOSE 20 GM/30ML UD CUP PO SCH (07:47)
[2017-07-15] MEDS: Sinemet 10/100 MG PO SCH (07:48)
[2017-07-15] MEDS: PRED-FORTE 1% OPHTHALMIC OP SCH (07:48)
[2017-07-15] MEDS: NORCO 5/325 MG PO SCH (08:00)
[2017-07-15 08:24] VITALS: BP 177/78; PULSE 76; O2SAT 96
--- NOTE | 2017-07-15 09:05 | DS ---
DISCHARGE DIAGNOSES: 1) PYELONEPHRITIS. 2) PSEUDOMONAS AERUGINOSA INFECTION. 3) HISTORY OF BENIGN PROSTATIC HYPERTROPHY NOW WITH URINARY RETENTION. HISTORY: The patient is an 82 year-old white male patient who has to self-cath at home. He has gotten into trouble from time to time with urinary tract infections. He usually feels quite weak when this happens. He presented to the emergency room after being seen in the [facility] with a temperature of 102F in the [facility] and up to 103F in the emergency room. He was diagnosed with urinary tract infection then admitted to the hospital on Rocephin and Levaquin. HOSPITAL COURSE: The patient was continued on those medications. His initial white blood cell count was approximately 26,000. We did grow back Pseudomonas aeruginosa in the urinary tract which was sensitive to all medications tested. The patient's white blood cell count had resolved nicely on the medication having returned to 10,300 on 07/15/2017. His BUN and creatinine were normal. Electrolytes were normal. He was feeling back to his usual state of health. He did have a Prince catheter placed during his stay but this would be removed prior to his discharge. The patient was discharged home on Levaquin 500 mg daily for an additional seven days with follow up in the office to see Dr. Slick Franco his regular doctor next week.
[2017-07-15] MEDS ORDERED: Sodium Chloride 0.9% 10 ML FLUSH Syringe IV SCH (14:00)
[2017-07-22] MEDS ORDERED: VITAMIN D2 PO SCH (08:45)
== END 2017-07-15 10:10 | disposition home or self-care (01) | DRG 690 ==
LOC: ED 18:32 → MED SURG 22:57 → OBSVTOIN 07-13 08:27
PROVIDERS: ADMIT Family Medicine; ATTEND Family Medicine
DX: N12 Tubulo-interstitial nephritis, not specified as acute or chronic (principal); B96.5 Pseudomonas (aeruginosa) (mallei) (pseudomallei) as the cause of diseases classified elsewhere; N40.1 Benign prostatic hyperplasia with lower urinary tract symptoms; R33.8 Other retention of urine; N39.0 Urinary tract infection, site not specified; E11.9 Type 2 diabetes mellitus without complications; G20 Parkinson's disease; I10 Essential (primary) hypertension; N40.0 Benign prostatic hyperplasia without lower urinary tract symptoms; Z79.4 Long term (current) use of insulin; Z79.899 Other long term (current) drug therapy; M19.90 Unspecified osteoarthritis, unspecified site; N28.9 Disorder of kidney and ureter, unspecified; Z87.891 Personal history of nicotine dependence
CPT/HCPCS: 36000; 36415; 80048; 80053; 81000; 83605; 85025; 87040; 87077; 87086; 87186; 93268; 94760; 96360; 96361; 96374; 99285; P9612; J0696; J1650; J1956; A9270-GY; G0378